=== PATIENT | female | born 1960 | race Caucasian/White ===

== ENCOUNTER 2019-07-15 15:17 | Emergency (ER) | payer OTHER ==
[~2019-07-15] VITALS: Ht 152.4 cm; Wt 70.0 kg
[2019-07-15 15:33] VITALS: BP 165/94
--- NOTE | 2019-07-15 16:31 | RAD ---
EXAM: Sacrum and coccyx, 3 views. HISTORY: Fall. COMPARISON: None. FINDINGS: 3 views of the sacrum and coccyx are obtained. There is deformity of the sacrococcygeal junction, suggesting a fracture of uncertain chronicity. The sacroiliac joints and hip joints are intact. There is grade 1 anterolisthesis of L4 and L5. There is facet arthropathy at the visualized lower lumbar levels. There is a calcification within the right buttock. IMPRESSION: Deformity of the sacrococcygeal junction. This may be a fracture of uncertain chronicity. Correlate for point tenderness in this location. Electronically signed by: Jasmyne Kevin MD (07/15/2019 4:29 PM) [facility]
[2019-07-15] MEDS ORDERED: OXYC-325 PO (16:50)
--- NOTE | 2019-07-15 16:50 | PHYS DOC ---
Past History Past Medical History: Alcoholism, Hypertension Additional Past Surgical Histo: Noncontributory Smoking: Non-smoker Alcohol Use: Heavy Drug Use: None General Adult EDM: Chief Complaint: MECHANICAL FALL HPI: HPI: 58 year old female presents with history of fall while at work 3 days ago after tripping over a palate. Reports she fell down onto palate down onto her buttocks. Denies LOC or head trauma. Denies neck pain. Reports significant bruising to sacral area. Denies loss of bowel/bladder. Denies use of blood thinners. Reports pain on ROM. Review of Systems: Review of Systems: Constitutional: Denies fever or chills Eyes: Denies change in visual acuity, redness, or eye pain HENT: Denies nasal congestion or sore throat Respiratory: Denies cough or shortness of breath Cardiovascular: Denies chest pain or palpitations GI: Denies abdominal pain, nausea, vomiting, or diarrhea : Denies dysuria or hematuria Musculoskeletal: Reports sacral pain; denies joint pain Integument: Denies rash; reports sacral bruising Neurologic: Denies headache, focal weakness or sensory changes; denies loss of bowel/bladder Complete systems were reviewed and found to be within normal limits, except as documented in this note. Physical Exam: PE: Constitutional: Well developed, well nourished, no acute distress, non-toxic appearance HENT: Normocephalic, atraumatic, nose normal Eyes: EOMI, PERRL, conjunctiva normal, no discharge Neck: Normal range of motion, no midline tenderness, supple Cardiovascular: Heart rate normal and regular rhythm Lungs & Thorax: Bilateral breath sounds clear to auscultation, no respiratory d istress Abdomen: Soft, no tenderness Skin: Warm, dry, no erythema, no rash, healing ecchymosis to sacral region Back: No midline tenderness, bilateral paraspinal tenderness to sacral area, no CVA tenderness Extremities: No tenderness, ROM intact, no edema Neurologic: Alert and oriented X 3, no focal deficits noted Psychologic: Affect normal, judgement normal EKG: EKG: [] Radiology/Procedures: Radiology/Procedures: PROCEDURE: SACRUM & COCCYX 3V EXAM: Sacrum and coccyx, 3 views. HISTORY: Fall. COMPARISON: None. FINDINGS: 3 views of the sacrum and coccyx are obtained. There is deformity of the sacrococcygeal junction, suggesting a fracture of uncertain chronicity. The sacroiliac joints and hip joints are intact. There is grade 1 anterolisthesis of L4 and L5. There is facet arthropathy at the visualized lower lumbar levels. There is a calcification within the right buttock. IMPRESSION: Deformity of the sacrococcygeal junction. This may be a fracture of uncertain chronicity. Correlate for point tenderness in this location. Electronically signed by: Jasmyne Kevin MD (07/15/2019 4:29 PM) [facility] Course & Med Decision Making: Course & Med Decision Making Pertinent Imaging studies reviewed. (See chart for details) Patient presents with history of fall 3 days ago with physical exam consistent for sacral contusion. XRs obtained without signs of acute fracture/dislocation. [facility] report obtained. Last narcotic prescription was 02/15/2019 for [place] 5/325mg x 30 tabs. Patient stable for discharge home with outpatient follow-up with PCP. Discussed findings and plan with patient, who acknowledges understanding and agreement. Dragon Disclaimer: [employer] Disclaimer: This electronic medical record was generated, in whole or in part, using a voice recognition dictation system. Departure Departure: Impression: Primary Impression: Fall Qualified Codes: W19.XXXA - Unspecified fall, initial encounter Additional Impressions: Sacral contusion Qualified Codes: S30.0XXA - Contusion of lower back and pelvis, initial encounter Ecchymosis Disposition: HOME/RESIDENCE PRIOR TO ADM Condition: STABLE Referrals: JASMYNE LEIGH MD (PCP) Patient Instructions: Contusion, [id number] Additional Instructions: ICE area 20 min on then leave off for next 20 min. Repeat as needed for next few days. Please follow closely with workman's compensation physician. Scripts Oxycodone HCl/Acetaminophen (Percocet 5-325 mg Tablet) 1 Each Tablet 0.5-1 TAB PO Q6HRS PRN for PAIN MDD 2 Tablet(s), #6 TAB 0 Refills Prov: CHEYENNE IVY DO 07/15/19 CHEYENNE IVY DO July 15, 2019 16:50
== END 2019-07-15 16:53 | disposition home or self-care (01) ==
LOC: ER 15:17
DX: S30.0XXA Contusion of lower back and pelvis, initial encounter (principal); I10 Essential (primary) hypertension; F10.20 Alcohol dependence, uncomplicated; W01.0XXA Fall on same level from slipping, tripping and stumbling without subsequent striking against object, initial encounter; Y93.89 Activity, other specified; Y92.89 Other specified places as the place of occurrence of the external cause; Y99.8 Other external cause status; Y90.9 Presence of alcohol in blood, level not specified
CPT/HCPCS: 72220; 99283